=== PATIENT | male | born 1930 | race Caucasian/White ===

== ENCOUNTER 2016-06-18 14:38 | Inpatient (IN) | payer MEDICARE ==
--- NOTE | ~2016-06-18 | HP ---
History And Physical [place] [address] [facility] [place]. [address] NAME: CHAZ LONG : 29 STATUS : ADM IN [facility]#: [id number] AGE: 85 ADM/REG DATE : 06/18/16 MR#: [id number] REPORT SERV DATE: 06/18/16 DICTATED BY: EILZA LEWIS DATE: 06/18/16 REPORT STATUS : Draft TRANSCRIBED BY: MODL DATE: 06/18/16 DATE OF ADMISSION: 06/18/2016 HISTORY OF PRESENT ILLNESS: Mr. Long is an 85-year-old gentleman who was brought in by his grandson and granddaughter as they found him with increasing difficulty breathing and also felt that he was more somnolent than usual. The patient has been having increasing difficulty breathing for the last few days and also having productive cough with yellowish brown sputum for the last three to four days also. The patient's family found him a little somnolent this morning and grandson also mentioned that he had found that his grandfather had soiled himself with diarrhea that had happened all over on his bed. Hence, family decided to bring him in. I examined the patient at bedside, some of the history was obtained from the patient who is already hooked up to a BiPAP, and some of the history was obtained from grandson and granddaughter who is at bedside. Both grandchildren take care of their grandfather. There is no history of fever. There is no history of nausea, vomiting, or abdominal pain. There is no headaches or pain in any place else. There is no history of strokes or anything to suggest stroke, like weakness or facial droop, etc. There is no history of hematuria or blood in stool. The grandson does report an episode of diarrhea that happened this morning and that is pretty much it. Other than that, there are no other positive review of systems. PAST MEDICAL HISTORY: Significant for COPD, hypertension, and hyperlipidemia. The patient is on home oxygen at 3 to 4 liters/minute, most of the time 3.5 liters/minute. The patient is also on intermittent BiPAP machine at home and has a BiPAP at home. Past medical history is also significant for mild diastolic heart failure; history of coronary artery disease, but there is no history of any stenting; obstructive sleep apnea; tremors and shakes, off and on; and generalized weakness. PAST SURGICAL HISTORY: Significant for previous tonsillectomy and bilateral cataract surgery. SOCIAL HISTORY: The patient does not smoke. He drinks some wine occasionally, denies any illicit drug use. The patient is and he lives with his grandchildren at the moment. FAMILY HISTORY: Positive for heart disease in the family. In fact, the patient lost his son to a heart attack. ALLERGIES: INCLUDE THE FOLLOWING: THE PATIENT IS ALLERGIC TO CARVEDILOL FROM [facility] [place]. MEDICATIONS: His home medications include aspirin 81 mg once a day; guaifenesin 400 mg p.o. q.6 hours; Spiriva inhaler; Afrin nasal spray; vitamin B12 1000 mcg tablets every day; vitamin B6 100 mg tablets every day; magnesium oxide 400 mg tablet, 800 mg once a day; pravastatin 40 mg once a day; lisinopril 20 mg p.o. twice a day; and albuterol for inhalation in nebulizer. Other than that, the patient does not take any other medications History And Physical [address] [address] NAME: CHAZ LONG : 29 STATUS : ADM IN [facility]#: [id number] AGE: 85 ADM/REG DATE : 06/18/16 MR#: [id number] REPORT SERV DATE: 06/18/16 DICTATED BY: ELIZA LEWIS DATE: 06/18/16 REPORT STATUS : Draft TRANSCRIBED BY: LOKI DATE: 06/18/16 on a regular basis. PHYSICAL EXAMINATION: GENERAL: On examination, the patient is a little somnolent and is wearing the BiPAP right now and appears to be breathing fairly comfortably. He does jerks once in a while and states that he is cold and shaking because of the cold, but his temperature is normal and the patient is afebrile. VITAL SIGNS: His vital signs show that his blood pressure is 194/82, temperature afebrile, pulse is 69 per minute, respirations 16 per minute, and oxygen saturation is 95% on 2 liters of oxygen. This was initially on the nasal cannula and now the patient is being changed to BiPAP and is doing well. HEENT: Unremarkable. The patient is an obese patient. There is no facial droop. There is no facial weakness. NECK: Thick and stocky, but there is no lymphadenopathy or thyromegaly. No JVD. RESPIRATORY SYSTEM: Poor air entry noted especially to lung bases. I could not appreciate any definitive rales, but I could appreciate a scattered rhonchi in both sides of the lungs, here and there scattered. Generally, air entry to the lungs is poor and the patient is moving little air in and out. He seems to be doing better when the BiPAP is on. CARDIOVASCULAR SYSTEM: S1 and S2 appreciated. Sinus rhythm. No murmurs, rubs, or gallops are noted. ABDOMEN: Obese, soft, nontender, and nondistended. Bowel sounds are appreciated. No organomegaly is noted. NEUROLOGICAL: No deficits at this time. EXTREMITIES: Exam of both legs reveals no pedal edema. Pedal pulses are well felt. MUSCULOSKELETAL: No acute swelling or redness in any of the major joints. PSYCHIATRIC: The patient appears a little somnolent right now probably from the hypercapnia. LABORATORY DATA: Labs that I have on this patient include the following: CBC shows a WBC count of 7.7, hemoglobin 9.5, hematocrit 31.6, and platelet count of 163. INR is 1. Comprehensive metabolic profile shows sodium 139, potassium 4.5, BUN is 21, and creatinine is 0.7. Troponin I is normal at less than 0.02 and LFTs are normal. Arterial blood gases show a pH of 7.35, pCO2 of 89, PO2 of 65, and oxygen saturation of 90.8 on 36% inspired O2. This is reflecting chronic hypercapnic respiratory failure as the patient has a compensated respiratory acidosis at this time. His chest x-ray shows that the patient does have a developing right basal pneumonia. ASSESSMENT: My assessment in this patient is acute on chronic hypoxic-hypercapnic respiratory failure - for this, the patient will be put on BiPAP for respiratory support, given breathing treatments with DuoNebs every four hours while awake and we will consult Pulmonology. As the patient will be on continuous BiPAP with the settings that I have noted in the orders, he will be in the IMCU. Acute exacerbation of chronic obstructive pulmonary disease - for this, we will continue his History And Physical [address] [address] NAME: CHAZ LONG STORMY : 29 STATUS : ADM IN [facility]#: [id number] AGE: 85 ADM/REG DATE : 06/18/16 MR#: [id number] REPORT SERV DATE: 06/18/16 DICTATED BY: ELIZA LEWIS DATE: 06/18/16 REPORT STATUS : Draft TRANSCRIBED BY: LOKI DATE: 06/18/16 inhaled corticosteroids and also Spiriva. We will also start him on Solu-Medrol 125 mg IV q.8 hours for the first 24 hours and then reduce. Right lower lobe pneumonia - for this, we will start the patient on IV Levaquin 750 mg once a day. We will also continue his medications that he takes for cough. We will hold his blood pressure medication at this time and will also hold his other vitamins and minerals that he takes at home as supplement at this time. We will also obtain chest x-ray and blood gases repeat within the next 12 hours. We will watch this patient closely in IMCU. ADDENDUM: I discussed code status with both the patient and family at this time and the patient has made it very clear that he wants to be a full code. He definitely understands the situation and states that he will go on life support machine if that were to happen in the near future. He states that he is healthy otherwise and would like to live as long as he can. Hence, at this time, we have this patient as a full code status. BOOGIE/LOKI Eliza Lewis M.D. / [id number] CC: Crescencio Mathews M.D.
--- NOTE | ~2016-06-18 | IDS ---
Interim Discharge Summary [facility] [address] [place]. [address] NAME: CHAZ LONG : 29 STATUS : ADM IN PAT#: [id number] AGE: 85 ADM/REG DATE : 06/18/16 MR#: [id number] REPORT SERV DATE: 06/24/16 DICTATED BY: ELIZA LEWIS DATE: 06/23/16 REPORT STATUS : Draft TRANSCRIBED BY: MODL DATE: 06/23/16 ADMISSION DATE: 06/18/2016 DISCHARGE DATE: Condition of the patient so far is stable. Code status of the patient is a full code. This decision has been made after discussing with the patient and the patient on multiple occasions has clearly mentioned that he wants every medical care including aggressive medical care to be given to him at this time. He has even agreed for endotracheal intubation if necessary. However, luckily, he has not required any endotracheal intubation as of now. He has been doing well with BiPAP support itself. Diagnoses so far include the followin. Acute hypoxic hypercapnic respiratory failure-resolved. 2. Acute encephalopathy-resolved. 3. Chronic hypoxic hypercapnic respiratory failure for which the patient is on home oxygen at 3 to 4 L/minute. 4. Chronic hypercapnic respiratory failure from probably obesity hypoventilation syndrome- the patient has a home BiPAP machine and is on certain settings with his home BiPAP. 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 He does require about an hour of BiPAP therapy at least three times a day and at least about six to seven hours of BiPAP therapy during nighttime to keep his pCO2 at baseline levels which is actually in the 60s. Other diagnoses also include: 1. Chronic diastolic heart failure for which he is on a mild diuretic. 2. Chronic obstructive pulmonary disease which is stable. 3. Hypertension and hyperlipidemia, which are all stable. 4. There is also a history of urinary incontinence for which the patient was placed on Melvin catheter for a while, and actually today, I am discontinuing Melvin catheter and giving him a voiding trial on 06/23/2016. If he does well without the Melvin catheter and his pCO2 comes back to baseline at around 60s, then he can be discharged to home, as currently, he is actually not interested in going to a rehab facility. However, this discussion could be brought up again and once Physical Therapy and Occupational Therapy evaluates him for safety of discharge, unless they say that it is safe for him to be discharged to home, he may be a candidate for transfer to an inpatient rehab. Currently, he does live with his granddaughter, but the granddaughter works. 5. So far, he is stable and has no other current ongoing issues except that if he is able to pass his voiding trial without the Melvin catheter and his pCO2 comes back comes back to baseline of about 60 on the BiPAP and his Pulmonary clears him, and based on PT/OT evaluation, he can be discharged in the next day or two. This patient will be followed by my colleague on 06/24/2016. Interim Discharge Summary [address] [place]. [address] NAME: CHAZ LONG : 29 STATUS : ADM IN PAT#: [id number] AGE: 85 ADM/REG DATE : 06/18/16 MR#: [id number] REPORT SERV DATE: 06/24/16 DICTATED BY: ELIZA LEWIS DATE: 06/23/16 REPORT STATUS : Draft TRANSCRIBED BY: LOKI DATE: 06/23/16 RRA/LOKI Eliza Lewis M.D. / [id number] CC: Crescencio Pond M.D.
--- NOTE | ~2016-06-18 | CN ---
Consultation Report [facility] [address] [place]. [address] NAME: CHAZ LONG : 29 STATUS : ADM IN PAT#: [id number] AGE: 85 ADM/REG DATE : 06/18/16 MR#: [id number] REPORT SERV DATE: 06/19/16 DICTATED BY: MARCIO VERA DATE: 06/19/16 REPORT STATUS : Draft TRANSCRIBED BY: MODL DATE: 06/19/16 CONSULTATION DATE OF CONSULTATION: Thank you for the opportunity to consult on this patient. This is one of the multiple hospitalizations for Mr. Long for presentations of acute exacerbation of COPD and acute- on-chronic hypercapnic respiratory failure. He had a pCO2 close to 90. He was started on BiPAP and that is improving. HISTORY OF PRESENT ILLNESS: Mr. Long is on BiPAP presently and is charted as being a poor historian even on previous admissions, certainly not a very good historian, right now with the BiPAP on. He came in this time with increasing dyspnea, more somnolence, again was found to be hypercapnic. He had had increased coughing, confusion at home, and some diarrhea as well as incontinence. PAST MEDICAL HISTORY: Significant for COPD, hypertension, hypercholesterolemia. He is on chronic oxygen and has a BiPAP machine at home, though there is some question as to his compliance. SOCIAL HISTORY: Significant for being a former smoker. He quit smoking in 1990 and prior to that, he had a significant smoking history having smoked anywhere from a half a pack to a pack a day for forty to fifty years. FAMILY HISTORY: Noncontributory to this acute presentation. REVIEW OF SYSTEMS: Review of 10 systems was performed within reason, given that he is on the BiPAP and still a little confused. He is able to answer simple questions and the bulk of his review of 10 systems was positive for what was noted above. PHYSICAL EXAMINATION: GENERAL: On exam, he appears chronically ill on BiPAP. VITAL SIGNS: His heart rate is 84, blood pressure 110/70 with a respiratory rate in the mid 20s. He is getting good tidal volumes on his BiPAP. HEENT: Normocephalic, atraumatic. NECK: Supple. No lymphadenopathy or no JVD. CHEST: Symmetric with good expansion bilaterally. He has decreased breath sounds bilaterally and a prolonged expiratory phase. CARDIOVASCULAR: He has S1 and S2, which are regular rate and rhythm. ABDOMEN: Benign, though obese. He has no edema. No clubbing. No cyanosis. ASSESSMENT AND PLAN: Chronic obstructive pulmonary disease with acute exacerbation. He has significant acute exacerbation with [id number]-ju-jlgbuft hypercapnic respiratory failure. I looked at his arterial blood gases, his baseline pCO2 is around 60 and he is now back to a Consultation Report [address] [place]. [address] NAME: CHAZ LONG : 29 STATUS : ADM IN [facility]#: [id number] AGE: 85 ADM/REG DATE : 06/18/16 MR#: [id number] REPORT SERV DATE: 06/19/16 DICTATED BY: MARCIO VERA DATE: 06/19/16 REPORT STATUS : Draft TRANSCRIBED BY: LOKI DATE: 06/19/16 pCO2 of 60 on the BiPAP. He has been started on good therapy for his chronic obstructive pulmonary disease exacerbation. There was a small infiltrate in the right base, however his procalcitonin is not elevated and today's x-rays already slightly improved, so that most likely represents atelectasis or mucus plugging. We would recommend continuing with aggressive therapy as you are doing and we will continue to monitor him with you. Please do not hesitate to contact me, if I could be of any further assistance. BARB/LOKI Marcio Vera M.D. / [id number] CC: Crescencio Mathews M.D.
--- NOTE | ~2016-06-18 | DS ---
Discharge Summary [facility] [address] [place]. [address] NAME: CHAZ LONG : 29 STATUS : DIS IN PAT#: [id number] AGE: 85 ADM/REG DATE : 06/18/16 MR#: [id number] REPORT SERV DATE: 06/25/16 DICTATED BY: DATE: REPORT STATUS : Draft TRANSCRIBED BY: MODL DATE: 06/24/16 ADMISSION DATE: 06/18/2016 DISCHARGE DATE: 06/24/2016 DISCHARGE DIAGNOSES: 1. Acute encephalopathy. 2. Right lower lobe pneumonia. 3. Htftl-ia-tbmjzrf hypercapnic hypoxic respiratory failure. 4. Obesity hypoventilation syndrome. 5. Chronic obstructive pulmonary disease. 6. Chronic diastolic heart failure. 7. Urinary incontinence. 8. Hypertension. CONSULTATIONS: Dr. Vera with Pulmonology. PROCEDURES AND IMAGIN. 06/18/2016, portable chest x-ray showed developing right basilar atelectasis versus infiltrate. Stable cardiomegaly and pulmonary hypertension. 2. 06/19/2016, portable chest x-ray showed infiltrate or atelectasis is resolving in the right lung base and cardiomegaly is unchanged. 3. 06/22/2016, portable chest x-ray showed stable cardiomegaly with pulmonary venous congestion. No acute infiltrate. HOSPITAL COURSE: This is an 85-year-old male, who is brought in by grandson and granddaughter when they found him having increasing shortness of breath and altered level of consciousness. Please see date of admission H and P by Dr. Negar Banks. The patient has had multiple blood gases drawn and has been on BiPAP during bedtime and at multiple times during the day and has had blood gases drawn. Please see consultation on 06/19/2016, by Dr. Amadeo Vera. Please see interim discharge summary on 06/23/2016, by Dr. Negar Banks. The patient continues to be a full code. I have assumed care of this patient on 06/24/2016. The patient is at baseline home oxygen level of O2 at 3.5 L a minute. The patient is on home BiPAP machine and is stable on these settings. The patient is using BiPAP intermittently during the day and during bedtime to keep his pCO2 level at baseline, which is in the 60s. The patient has done well with his voiding trial and will be discharged to a rehab facility after he is cleared by Pulmonary. PHYSICAL EXAMINATION: VITAL SIGNS: Blood pressure 153/67, O2 saturation 95% on 5 L nasal cannula, temperature is 96.8, heart rate is 87, and respirations are 18. HEENT: Head is atraumatic, normocephalic. Pupils are equal, round, reactive to light. Sclerae are clear and nonicteric. NECK: Supple with no obvious thyromegaly or lymphadenopathy. Neck veins are flat. CARDIAC: The patient is in a regular rhythm with no obvious murmurs, rubs, or gallops. GI: Abdomen is soft and nontender with active bowel sounds in all four quadrants. Last bowel movement was 06/24/2016. No palpable organomegaly. Abdomen is obese. Discharge Summary [address] [place]. [address] NAME: CHAZ LONG : 29 STATUS : DIS IN PAT#: [id number] AGE: 85 ADM/REG DATE : 06/18/16 MR#: [id number] REPORT SERV DATE: 06/25/16 DICTATED BY: DATE: REPORT STATUS : Draft TRANSCRIBED BY: MODL DATE: 06/24/16 LUNGS: Clear with decreased breath sounds in the bilateral bases. MUSCULOSKELETAL: The patient moves all extremities x4. SKIN: Skin is warm and dry with normal color and turgor. NEUROLOGIC/PSYCHIATRIC: The patient is alert and oriented x3, pleasant and cooperative. Cranial nerves 2 through 12 are grossly intact. LABORATORY DATA: Of note, the patient's blood cultures have been negative at four days. DISCHARGE MEDICATIONS: Aspirin 81 mg daily, Bumex 1 mg daily, vitamin B12 of 1000 mcg daily, guaifenesin 400 mg every six hours, Levaquin 750 mg x4 more days, mag oxide 800 mg daily, Protonix 40 mg daily, potassium 10 mEq daily, pravastatin 40 mg daily, vitamin B6 100 mg daily, Brovana 50 mcg twice daily, Pulmicort 1 mg twice daily, DuoNeb q.4 hours p.r.n., Tylenol 650 mg p.o. or p.r. q.4 hours p.r.n. temp or mild pain, docusate sodium 100 mg twice daily as needed, Spiriva 18 mcg capsule for inhalation daily, albuterol 3 mL inhaled q.4 hours p.r.n. shortness of breath or wheezing, [place]-3 capsule daily, vitamin D3 1000 units daily, Afrin spray two sprays nasally as needed for congestion in both nostrils, and lisinopril 20 mg daily. ALLERGIES: COREG; CAUSES DIZZINESS. DISCHARGE INSTRUCTIONS: The patient is to follow up with his PCP in three weeks. Should the patient develop any more symptomatology or excessive shortness of breath, he should call his PCP, his ambulance attendant or present to the ER. Approximately 40 minutes has been spent coordinating discharge care of this patient including ping-zh-nigp encounter and summarization of the discharge. HAZEL/MODL Kecia Pelaez NP / [id number] CC: MD Jaden Schmidt M.D.
[2016-06-18 14:31] LABS: BASOPHILS 0.5 %; BASOPHILS ABSOLUTE 0.04 10/3/uL (0.0-0.16); EOSINOPHILS ABSOLUTE 0.08 10/3/uL (0.0-0.53); HEMATOCRIT 31.6 % (40.0-51.0); HEMOGLOBIN 9.5 g/dL (13.6-17.8); IMMATURE GRANULOCYTES 0.3 %; IMMATURE GRANULOCYTES ABSOLUTE 0.02 10/3/uL (0.0-0.11); LYMPHOCYTES 26.7 %; LYMPHOCYTES ABSOLUTE 2.05 10/3/uL (0.67-4.30); MEAN CORPUSCULAR HEMOGLOB 30.8 pg (26.0-34.0); MEAN PLATELET VOLUME 8.2 fL (9.2-13.0); MONOCYTES 8.3 %; MONOCYTES ABSOLUTE 0.64 10/3/uL (0.21-1.20); NEUTROPHILS 63.2 %; NEUTROPHILS ABSOLUTE 4.85 10/3/uL (2.02-8.40); PLATELET COUNT 163 10/3/uL (150-400); RBC DISTRIBUTION WIDTH 13.2 % (12.0-16.0); RED CELL COUNT 3.08 10/6/uL (4.7-6.1); WHITE BLOOD CELLS 7.7 10/3/uL (4.5-10.5)
[2016-06-18 14:32] LABS: MANUAL DIFF NO %; MEAN CORPUS HGB CONC 30.1 g/dL (32.0-36.0); MEAN CORPUSCULAR VOLUME 102.6 fL (80-100)
[~2016-06-18 14:38] MED LIST: ACCU20 PO; ADVAIR250 INH; ALAVERT10 MG PO; ALBUTEROL5 INH; ALLEGRA PO; ALOE VERA GEL; ASAB PO; AUG500 PO; AUG875 PO; B1100 PO; B12250T PO; BROVANA15 MCG INH; CAYENNE; COREG3 PO; CRANBERRY FRUIT PO; CYANO1000T PO; DEMA20 PO; DULERA 100 MCG/13 GM INH; DULERA PO; EXELON4.6T TOP; FENESIN IR400 MG PO; FISH-EPA1000 MG PO; FLONASE NAS; FLORASTOR250 MG PO; FLUOROURACIL51 TOP; GARLIC; GARLIC PO; GINSANA; GOLDENSEAL PO; HYDROCORT12 TOP; KLOR-CON M2020 MEQ PO; L20 PO; L40 PO; LEVAQUIN750 MG PO; LISINOPRIL40 MG PO; MAGOX4 PO; MAGTRATE500 MG PO; MCZ25 PO; MIRALAXPKT PO; MONODOX100 MG PO; MUCINEX D1 TA1 OR; MULTIPLE VIT PO; MULTIVIT/MIN PO; NORV10 PO; OTC NASAL SPRAY NAS; P10; P10 PO; P20 PO; PRAV10 PO; PRAVACHOL40 MG PO; PRIN10 PO; PRIN20 PO; PROAIR HFA INH; PROVENTSOL INH; PULRESP.5 INH; PULRESP1 INH; QVAR80 MCG INH; RELIEF PO; SPIRIVA INH; SPIRIVA RESPIMAT INH; SPIRO25 PO; STERAPRED DS10 MG; SYMBICORT 160/41 INH INH; T PO; V-R VIT B-6100 MG PO; VITAMIN B-121000 MC1 PO; VITAMIN B-625 MG OR; VITAMIN B-625 MG PO; VITAMIN D31000 UNIT PO; Z100 PO; ZOCOR10 PO; ZYRTEC ALLGY10 MG PO; [UNRECOGNIZED DRUG - OTHER]; [UNRECOGNIZED DRUG - REMARK]
[2016-06-18 14:42] LABS: ALLENS TEST Pos; BE (BASE EXCESS) 19.3 MEQ/L (0 +/- 2.5); CARBOXYHEMOGLOBIN 1.1 % (0-3); DEVICE NC; HCO3 (ACTUAL BICARBONATE) 48.4 MEQ/L (23-27); HEMOBLOGIN CONTENT 10.2 G/DL (14-18); INSTRUMENT SERIAL # 8087; METHEMOGLOBIN 0.1 % (0-3); O2 CONTENT 12.9 VOL% (18-24); PCO2 (CO2 TENSION) 89 MMHG (35-45); PO2 (O2 TENSION) 65 MMHG (79-93); SAMPLE Arterial; pH 7.35 (7.37-7.43)
[2016-06-18 14:48] LABS: A/G RATIO 0.7 (0.7-1.9); ALBUMIN 2.8 G/DL (3.5-5.0); ALKALINE PHOSPHATASE 76 U/L (45-117); BUN (BLOOD UREA NITROGEN) 21 MG/DL (6-23); CALCIUM, SERUM 9.3 MG/DL (8.5-10.4); CHLORIDE, SERUM 90 MMOL/L (96-112); CREATININE 0.79 MG/DL (0.70-1.30); GFR AFRICAN AMERICAN 94 ML/MIN (>=60); GFR NON AFRICAN AMERICAN 81 ML/MIN (>=60); GLOBULIN 4.2 G/DL (2.5-4.1); POTASSIUM, SERUM 4.5 MMOL/L (3.5-5.3); PROTIME (NOT ORD) 13.3 SEC (12.0-14.5); SGOT(AST) 11 U/L (5-40); SGPT(ALT) 16 U/L (5-65); SODIUM, SERUM 139 MMOL/L (135-148); TOTAL BILIRUBIN 0.4 MG/DL (0-1.2); TROPONIN I <0.02 NG/ML (<0.05)
[2016-06-18 14:50] LABS: GLUCOSE, SERUM 129 MG/DL (60-99)
[2016-06-18 15:02] LABS: CO2 (CARBON DIOXIDE) > 45 MMOL/L (24-34)
[2016-06-18] MEDS ORDERED: ASAB PO (15:34)
[2016-06-18] MEDS ORDERED: OMEGA XL PO (15:37)
[2016-06-18] MEDS ORDERED: VITAMIN D31000 UNIT PO (15:37)
[2016-06-18] MEDS ORDERED: XPECT400 MG PO (15:37)
[2016-06-18] MEDS ORDERED: SPIRIVA RESPIMAT INH (15:38)
[2016-06-18] MEDS ORDERED: CYANO1000T PO (15:39)
[2016-06-18] MEDS ORDERED: AFRIN15 NAS (15:39)
[2016-06-18] MEDS ORDERED: VITAMIN B-625 MG PO (15:40)
[2016-06-18] MEDS ORDERED: MAGOX4 PO (15:40)
[2016-06-18] MEDS ORDERED: ALBUTEROL0.083 % INH (15:41)
[2016-06-18] MEDS ORDERED: PRAVACHOL40 MG PO (15:41)
[2016-06-18] MEDS ORDERED: PRIN20 PO (15:41)
[2016-06-18 18:35] LABS: TROPONIN I <0.02 NG/ML (<0.05)
[2016-06-18 20:21] LABS: PROCALCITONIN 0.07 ng/mL (<0.5)
[2016-06-19 04:02] LABS: BE (BASE EXCESS) 12.8 MEQ/L (0 +/- 2.5); CARBOXYHEMOGLOBIN 0.3 % (0-3); HCO3 (ACTUAL BICARBONATE) 39.3 MEQ/L (23-27); INSTRUMENT SERIAL # 11843; METHEMOGLOBIN 0.3 % (0-3); O2 CONTENT 13.1 VOL% (18-24); PCO2 (CO2 TENSION) 62 MMHG (35-45); PO2 (O2 TENSION) 70 MMHG (79-93); pH 7.42 (7.37-7.43)
[2016-06-19 04:03] LABS: ALLENS TEST Pos; BIPAP 16/7 cm.H2O; OPERATOR ID 14661; SAMPLE Arterial
[2016-06-19 04:25] LABS: BASOPHILS 0 %; EOSINOPHILS 0 %; HEMATOCRIT 29.4 % (40.0-51.0); HEMOGLOBIN 9.3 g/dL (13.6-17.8); IMMATURE GRANULOCYTES 0.2 %; IMMATURE GRANULOCYTES ABSOLUTE 0.01 10/3/uL (0.0-0.11); LYMPHOCYTES 25.2 %; LYMPHOCYTES ABSOLUTE 1.43 10/3/uL (0.67-4.30); MEAN CORPUS HGB CONC 31.6 g/dL (32.0-36.0); MEAN CORPUSCULAR HEMOGLOB 31.6 pg (26.0-34.0); MEAN PLATELET VOLUME 8.9 fL (9.2-13.0); MONOCYTES 0.5 %; MONOCYTES ABSOLUTE 0.03 10/3/uL (0.21-1.20); NEUTROPHILS 74.1 %; NEUTROPHILS ABSOLUTE 4.21 10/3/uL (2.02-8.40); PLATELET COUNT 204 10/3/uL (150-400); RBC DISTRIBUTION WIDTH 13.3 % (12.0-16.0); RED CELL COUNT 2.94 10/6/uL (4.7-6.1); WHITE BLOOD CELLS 5.7 10/3/uL (4.5-10.5)
[2016-06-19 04:26] LABS: MANUAL DIFF NO %
[2016-06-19 04:45] LABS: BUN (BLOOD UREA NITROGEN) 24 MG/DL (6-23); CALCIUM, SERUM 9.8 MG/DL (8.5-10.4); CHLORIDE, SERUM 91 MMOL/L (96-112); GFR AFRICAN AMERICAN 89 ML/MIN (>=60); GFR NON AFRICAN AMERICAN 77 ML/MIN (>=60); POTASSIUM, SERUM 4.9 MMOL/L (3.5-5.3); SODIUM, SERUM 139 MMOL/L (135-148)
[2016-06-19 04:46] LABS: CO2 (CARBON DIOXIDE) 38 MMOL/L (24-34); GLUCOSE, SERUM 155 MG/DL (60-99)
[2016-06-19 05:18] LABS: ASCORBIC ACID (UR NOT ORDER) NEG (NEG); BILIRUBIN, URINE NEGATIVE (NEG); KETONE, URINE NEGATIVE (NEG); LEUKOCYTE ESTERASE(NOT OR NEG (NEG); WBC (NOT ORDERED) (RFLEX) 2 (0-5)
[2016-06-20 04:41] LABS: BASOPHILS 0 %; EOSINOPHILS 0 %; HEMATOCRIT 27.8 % (40.0-51.0); HEMOGLOBIN 8.9 g/dL (13.6-17.8); IMMATURE GRANULOCYTES 0.2 %; IMMATURE GRANULOCYTES ABSOLUTE 0.01 10/3/uL (0.0-0.11); LYMPHOCYTES 17.7 %; LYMPHOCYTES ABSOLUTE 0.95 10/3/uL (0.67-4.30); MEAN CORPUSCULAR HEMOGLOB 31.6 pg (26.0-34.0); MEAN CORPUSCULAR VOLUME 98.6 fL (80-100); MEAN PLATELET VOLUME 8.6 fL (9.2-13.0); MONOCYTES 4.5 %; MONOCYTES ABSOLUTE 0.24 10/3/uL (0.21-1.20); NEUTROPHILS 77.6 %; NEUTROPHILS ABSOLUTE 4.17 10/3/uL (2.02-8.40); PLATELET COUNT 172 10/3/uL (150-400); RBC DISTRIBUTION WIDTH 13.2 % (12.0-16.0); RED CELL COUNT 2.82 10/6/uL (4.7-6.1); WHITE BLOOD CELLS 5.4 10/3/uL (4.5-10.5)
[2016-06-20 04:42] LABS: MANUAL DIFF NO %
[2016-06-20 05:03] LABS: BUN (BLOOD UREA NITROGEN) 25 MG/DL (6-23); CALCIUM, SERUM 9.2 MG/DL (8.5-10.4); CHLORIDE, SERUM 93 MMOL/L (96-112); CO2 (CARBON DIOXIDE) 38 MMOL/L (24-34); CREATININE 0.75 MG/DL (0.70-1.30); GFR AFRICAN AMERICAN 96 ML/MIN (>=60); GFR NON AFRICAN AMERICAN 83 ML/MIN (>=60); GLUCOSE, SERUM 150 MG/DL (60-99); PHOSPHORUS, SERUM 3.2 MG/DL (2.5-4.5); SODIUM, SERUM 139 MMOL/L (135-148)
[2016-06-20 05:07] LABS: POTASSIUM, SERUM 3.6 MMOL/L (3.5-5.3)
[2016-06-21 06:04] LABS: BASOPHILS 0.1 %; BASOPHILS ABSOLUTE 0.01 10/3/uL (0.0-0.16); EOSINOPHILS 0 %; HEMATOCRIT 29.8 % (40.0-51.0); HEMOGLOBIN 9.5 g/dL (13.6-17.8); IMMATURE GRANULOCYTES 0.6 %; IMMATURE GRANULOCYTES ABSOLUTE 0.05 10/3/uL (0.0-0.11); LYMPHOCYTES 11.8 %; LYMPHOCYTES ABSOLUTE 0.95 10/3/uL (0.67-4.30); MEAN CORPUS HGB CONC 31.9 g/dL (32.0-36.0); MEAN CORPUSCULAR HEMOGLOB 31.1 pg (26.0-34.0); MEAN CORPUSCULAR VOLUME 97.7 fL (80-100); MEAN PLATELET VOLUME 9.2 fL (9.2-13.0); MONOCYTES 3.1 %; MONOCYTES ABSOLUTE 0.25 10/3/uL (0.21-1.20); NEUTROPHILS 84.4 %; NEUTROPHILS ABSOLUTE 6.77 10/3/uL (2.02-8.40); PLATELET COUNT 198 10/3/uL (150-400); RBC DISTRIBUTION WIDTH 13.9 % (12.0-16.0); RED CELL COUNT 3.05 10/6/uL (4.7-6.1)
[2016-06-21 06:05] LABS: MANUAL DIFF NO %
[2016-06-21 06:16] LABS: BUN (BLOOD UREA NITROGEN) 25 MG/DL (6-23); CALCIUM, SERUM 8.9 MG/DL (8.5-10.4); CHLORIDE, SERUM 94 MMOL/L (96-112); CO2 (CARBON DIOXIDE) 39 MMOL/L (24-34); CREATININE 0.87 MG/DL (0.70-1.30); GFR AFRICAN AMERICAN 91 ML/MIN (>=60); GFR NON AFRICAN AMERICAN 78 ML/MIN (>=60); GLUCOSE, SERUM 149 MG/DL (60-99); POTASSIUM, SERUM 3.8 MMOL/L (3.5-5.3); SODIUM, SERUM 140 MMOL/L (135-148)
[2016-06-22 04:34] LABS: ALLENS TEST Pos; BE (BASE EXCESS) 13.1 MEQ/L (0 +/- 2.5); CARBOXYHEMOGLOBIN 0.3 % (0-3); DEVICE NC; HCO3 (ACTUAL BICARBONATE) 41.3 MEQ/L (23-27); HEMOBLOGIN CONTENT 11.2 G/DL (14-18); INSTRUMENT SERIAL # 35151; METHEMOGLOBIN 0.7 % (0-3); OPERATOR ID 31061; PCO2 (CO2 TENSION) 75 MMHG (35-45); PO2 (O2 TENSION) 84 MMHG (79-93); SAMPLE Arterial; pH 7.36 (7.37-7.43)
[2016-06-22 05:02] LABS: BASOPHILS 0 %; EOSINOPHILS 0 %; HEMATOCRIT 31.2 % (40.0-51.0); HEMOGLOBIN 9.7 g/dL (13.6-17.8); IMMATURE GRANULOCYTES 0.9 %; IMMATURE GRANULOCYTES ABSOLUTE 0.09 10/3/uL (0.0-0.11); LYMPHOCYTES 8.4 %; LYMPHOCYTES ABSOLUTE 0.84 10/3/uL (0.67-4.30); MANUAL DIFF NO %; MEAN CORPUS HGB CONC 31.1 g/dL (32.0-36.0); MEAN CORPUSCULAR HEMOGLOB 30.9 pg (26.0-34.0); MEAN CORPUSCULAR VOLUME 99.4 fL (80-100); MEAN PLATELET VOLUME 9.2 fL (9.2-13.0); MONOCYTES 4.4 %; MONOCYTES ABSOLUTE 0.44 10/3/uL (0.21-1.20); NEUTROPHILS 86.3 %; NEUTROPHILS ABSOLUTE 8.58 10/3/uL (2.02-8.40); PLATELET COUNT 204 10/3/uL (150-400); RBC DISTRIBUTION WIDTH 14.2 % (12.0-16.0); RED CELL COUNT 3.14 10/6/uL (4.7-6.1)
[2016-06-22 05:15] LABS: BUN (BLOOD UREA NITROGEN) 30 MG/DL (6-23); CALCIUM, SERUM 8.9 MG/DL (8.5-10.4); CHLORIDE, SERUM 91 MMOL/L (96-112); CO2 (CARBON DIOXIDE) 41 MMOL/L (24-34); CREATININE 0.98 MG/DL (0.70-1.30); GFR AFRICAN AMERICAN 81 ML/MIN (>=60); GFR NON AFRICAN AMERICAN 70 ML/MIN (>=60); GLUCOSE, SERUM 139 MG/DL (60-99); POTASSIUM, SERUM 4.1 MMOL/L (3.5-5.3); SODIUM, SERUM 138 MMOL/L (135-148)
[2016-06-23 04:18] LABS: HEMATOCRIT 31.4 % (40.0-51.0); MEAN CORPUS HGB CONC 31.8 g/dL (32.0-36.0); MEAN CORPUSCULAR HEMOGLOB 31.9 pg (26.0-34.0); MEAN CORPUSCULAR VOLUME 100.3 fL (80-100); MEAN PLATELET VOLUME 10.4 fL (9.2-13.0); PLATELET COUNT 251 10/3/uL (150-400); RBC DISTRIBUTION WIDTH 13.9 % (12.0-16.0); RED CELL COUNT 3.13 10/6/uL (4.7-6.1); WHITE BLOOD CELLS 6.2 10/3/uL (4.5-10.5)
[2016-06-23 04:20] LABS: MANUAL DIFF YES %
[2016-06-23 04:54] LABS: IMMATURE GRANS ABSOLUTE (CALC) 0.06 10/3/uL (0.0-0.11); LYMPHOCYTES 21 %; METAMYELOCYTES 1 %; MONOCYTES 1 %; MONOCYTES ABSOLUTE (CALC) 0.06 10/3/uL (0.21-1.20); NEUTROPHILS ABSOLUTE (CALC) 4.77 10/3/uL (2.02-8.40); SEGMENTED NEUTROPHIL (0) 77 %; TOTAL NUCLEATED CELLS 100
[2016-06-23 04:55] LABS: PLATELET ESTIMATE ADQ (ADEQUATE)
[2016-06-23 04:56] LABS: MACROCYTES 1+ (5-10/OIF) (0-5/OIF); POLYCHROMASIA 1+ (2-5/OIF) (0-1/OIF)
[2016-06-23 05:53] LABS: ALLENS TEST Pos; BE (BASE EXCESS) 16.2 MEQ/L (0 +/- 2.5); CARBOXYHEMOGLOBIN 0.5 % (0-3); DEVICE NC; HCO3 (ACTUAL BICARBONATE) 43.6 MEQ/L (23-27); HEMOBLOGIN CONTENT 10.7 G/DL (14-18); INSTRUMENT SERIAL # 8083; METHEMOGLOBIN 0.1 % (0-3); O2 CONTENT 13.8 VOL% (18-24); PCO2 (CO2 TENSION) 70 MMHG (35-45); PO2 (O2 TENSION) 66 MMHG (79-93); SAMPLE Arterial; pH 7.42 (7.37-7.43)
[2016-06-23 06:28] LABS: CALCIUM, SERUM 9.3 MG/DL (8.5-10.4); CHLORIDE, SERUM 91 MMOL/L (96-112); CO2 (CARBON DIOXIDE) 40 MMOL/L (24-34); CREATININE 0.94 MG/DL (0.70-1.30); GFR AFRICAN AMERICAN 85 ML/MIN (>=60); GFR NON AFRICAN AMERICAN 73 ML/MIN (>=60); GLUCOSE, SERUM 150 MG/DL (60-99); POTASSIUM, SERUM 4.6 MMOL/L (3.5-5.3); SODIUM, SERUM 137 MMOL/L (135-148)
[2016-06-23 06:29] LABS: BUN (BLOOD UREA NITROGEN) 36 MG/DL (6-23)
== END 2016-06-24 21:30 | DRG 189 ==
LOC: ER 14:38 → IMCU 15:54 → 7NO 06-20 15:56
PROVIDERS: Emergency Medicine; Internal Medicine
PROC: 5A09357 Assistance with Respiratory Ventilation, Less than 24 Consecutive Hours, Continuous Positive Airway Pressure (ICD-10-PCS; principal; 2016-06-18)
DX: J96.21 Acute and chronic respiratory failure with hypoxia (principal); J18.9 Pneumonia, unspecified organism; G93.40 Encephalopathy, unspecified; I11.0 Hypertensive heart disease with heart failure; J44.0 Chronic obstructive pulmonary disease with (acute) lower respiratory infection; I50.32 Chronic diastolic (congestive) heart failure; Z99.81 Dependence on supplemental oxygen; J44.1 Chronic obstructive pulmonary disease with (acute) exacerbation; E66.2 Morbid (severe) obesity with alveolar hypoventilation; J96.22 Acute and chronic respiratory failure with hypercapnia; R32 Unspecified urinary incontinence; E78.5 Hyperlipidemia, unspecified; G47.33 Obstructive sleep apnea (adult) (pediatric); I25.10 Atherosclerotic heart disease of native coronary artery without angina pectoris; E78.00 Pure hypercholesterolemia, unspecified; Z87.891 Personal history of nicotine dependence; Z68.29 Body mass index [BMI] 29.0-29.9, adult; Z88.8 Allergy status to other drugs, medicaments and biological substances
CPT/HCPCS: 36600; 71010; 80048; 80053; 81001; 82805; 82962; 83735; 83880; 84100; 84145; 84484; 85025; 85610; 87040; 93005; 94640; 94660; 96374; 97116-GP; 97162-GP; 97165-GO; 99285; A9270-GY; G8978-CL-GP; G8979-CK-GP; G8987-CJ-GO; G8988-CI-GO; J0360; J0456; J1170; J1956; J2405; J2930; J3486